=== PATIENT | female | born 1980 | race Caucasian/White ===

== ENCOUNTER 2019-04-01 09:12 | Emergency (ER) | payer MEDICAID ==
[2019-04-01 09:27] VITALS: BP 135/100
[2019-04-01] MEDS ORDERED: PENICILLIN VK 250 MG TABLET PO STA (09:33)
[2019-04-01] MEDS ORDERED: HYDROcod/ACETAM 5/325 MG TABLET PO STA (09:41)
--- NOTE | 2019-04-01 09:44 | ED Physician Documentation ---
History of Present Illness - Stated complaint Stated Complaint: DENTAL PX - Chief complaint Chief Complaint: Heent - History obtained from History obtained from: Patient - History of Present Illness Timing: How many days ago (3-4) Pain level max: 8 Pain level now: 8 - Additonal information Additional information: Left upper molar pain. Worsening for the past 3 to 4 days. Attempted to see a dentist but was told no one takes her insurance. Came here for evaluation. No fevers. Taking ibuprofen for pain Nothing makes it better or worse. 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 - Present Medications Home Medications: Ambulatory Orders Medication Instructions Recorded Confirmed Hydrocodone/Acetaminophen 1 - 2 each PO Q6H PRN #10 tablet 04/01/19 [Hydrocodon-Acetaminophen 5-325] Penicillin V Potassium 500 mg PO Q6HR #40 tablet 04/01/19 - Allergies Allergies/Adverse Reactions: Allergies Allergy/AdvReac Type Severity Reaction Status Date / Time No Known Drug Allergies Allergy Verified 04/01/19 09:27 - Social History Does the pt smoke?: No Smoking Status: Current some day smoker Substance Use and Type: Marijuana PD ED PE NORMAL - Vitals Vital signs reviewed: Yes - General General: Alert and oriented X 3, No acute distress, Well developed/nourished - HEENT HEENT: PERRL, Moist mucous membranes, Other (Tender to palpation left upper molar. No facial swelling. No gingival swelling. No drainable abscess.) - Neck Neck: Supple, no meningeal sign, Other (Normal phonation. No trismus. No Jerod's angina) - Cardiac Cardiac: RRR - Respiratory Respiratory: Clear bilaterally - Derm Derm: Warm and dry - Neuro Neuro: Alert and oriented X 3 - Psych Psych: Normal mood, Normal affect Results - Vitals Vitals: Oxygen O2 Source Room air PD MEDICAL DECISION MAKING - ED course Complexity details: considered differential, d/w patient ED course: Patient with dental caries and dental pain. Will place on antibiotics and pain medication. We will have her follow-up with her doctor for further care. She will try to get a dentist appointment as soon as possible. Patient counseled regarding signs and symptoms for which I believe and urgent re-evaluation would be necessary. Patient with good understanding of and agreement to plan and is comfortable going home at this time This document was made in part using voice recognition software. While efforts are made to proofread this document, sound alike and grammatical errors may occur. No drainable abscess Departure - Departure Disposition: 01 Home, Self Care Clinical Impression: Pain due to dental caries Condition: Good Instructions: ED Tooth Pain Follow-Up: your,dentist within the next week [Other] Prescriptions: Penicillin V Potassium 500 mg PO Q6HR #40 tablet Hydrocodone/Acetaminophen [Hydrocodon-Acetaminophen 5-325] 1 - 2 each PO Q6H PRN #10 tablet PRN Reason: pain Comments: Take all antibiotics until gone. Return if you worsen. Follow-up with your dentist for further care. Do not drink alcohol or drive while on narcotic pain medicine. Note that many narcotic pain relievers also contain tylenol/acetaminophen. Please ensure that your total dose of acetaminophen from all sources does not exceed 3 grams (3000mg) per day. You may constipated on this medication, take a stool softener such as "Colace" twice a day while you are on it. Also recommend a vlce-xxi-ijssram laxative such as senna or MiraLAX any day that you do not have a bowel movement. If you received narcotic pain medication in the emergency department, do not drive or operate machinery for the next 24 hours. Discharge Date/Time: 04/01/19 09:50
== END 2019-04-01 09:50 | disposition home or self-care (01) ==
LOC: ED 09:12
DX: K02.9 Dental caries, unspecified (principal); F17.200 Nicotine dependence, unspecified, uncomplicated; Q79.60 Ehlers-Danlos syndrome, unspecified
CPT/HCPCS: 99283; 99284; A9270

== ENCOUNTER 2020-02-14 11:48 | Emergency (ER) | payer MEDICAID ==
--- NOTE | 2020-02-14 12:18 | ED Physician Documentation ---
History of Present Illness - Stated complaint Stated Complaint: R HAND PX - Chief complaint Chief Complaint: Ext Problem - History obtained from History obtained from: Patient - History of Present Illness Timing: How many days ago (2) - Additonal information Additional information: 39-year-old female presents the emergency department with 2 days of acute nontraumatic right hand pain. 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 She reports that she has pain in the space between her second third and fourth fingers. There is mild swelling but no erythema or fevers. 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 She has not taking any pain medication. 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 She is right-hand dominant Review of Systems Constitutional: reports: Reviewed and negative Eyes: reports: Reviewed and negative Ears: reports: Reviewed and negative Nose: reports: Reviewed and negative Throat: reports: Reviewed and negative Cardiac: reports: Reviewed and negative Respiratory: reports: Reviewed and negative GI: reports: Reviewed and negative : reports: Reviewed and negative Skin: reports: Reviewed and negative Musculoskeletal: reports: Extremity pain, Joint pain. 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 - Present Medications Home Medications: Ambulatory Orders Medication Instructions Recorded Confirmed Hydrocodone/Acetaminophen [[place] 1 each PO Q6H PRN #20 tablet 01/06/20 5-325 Tablet] Naproxen 500 mg PO BID #25 tablet 01/06/20 methocarbamoL [Robaxin] 500 mg PO Q6H PRN #30 tablet 01/06/20 Ibuprofen [Motrin] 600 mg PO Q6H PRN #30 tab 02/14/20 - Allergies Allergies/Adverse Reactions: Allergies Allergy/AdvReac Type Severity Reaction Status Date / Time No Known Drug Allergies Allergy Verified 02/14/20 12:12 - Social History Does the pt smoke?: No Smoking Status: Current some day smoker Does the pt drink ETOH?: Yes Does the pt have substance abuse?: No - Immunizations Immunizations are current?: Yes - POLST Patient has POLST: No PD ED PE NORMAL - General General: Alert and oriented X 3, No acute distress, Well developed/nourished - HEENT HEENT: PERRL, EOMI - Neck Neck: Supple, no meningeal sign, No adenopathy - Cardiac Cardiac: RRR, No murmur - Abdomen Abdomen: Normal bowel sounds, Soft - Female Female : Deferred - Extremities Extremities: No deformity. No: No tenderness to palpate, Normal ROM s pain (pain between 2,3,4-5 finger with palpation. mild swelling. 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 No snuff box tenderness. normal movement against resitance though painful) Results - Vitals Vitals: Vital Signs - 24 hr 02/14/20 12:08 Temperature 37 C Heart Rate 84 Respiratory 16 Rate Blood Pressure 147/81 H O2 Saturation 100 Oxygen O2 Source Room air - Rads (name of study) right hand Radiology: Final report received (Fracture or dislocation. Mild first CMC joint osteoarthritis) PD MEDICAL DECISION MAKING - ED course Complexity details: reviewed results, re-evaluated patient, considered differential, d/w patient ED course: 89-year-old female presents to the emergency department with 2 days of right nontraumatic hand pain. 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 X- ray shows no acute fracture or dislocation. She was given 60 mg of Toradol here in the emergency department with good relief of the pain and improve movement. At this time I will recommend NSAID medication at home for analgesia and follow-up with primary care doctor. Given lack of fevers or swelling or erythema my suspicion for an infectious joint is low. She also has no signs of tenosynovitis on exam. Departure - Departure Disposition: 01 Home, Self Care Clinical Impression: Right hand pain, Nellie-Danlos disease Condition: Stable Record reviewed to determine appropriate education?: Yes Prescriptions: Ibuprofen [Motrin] 600 mg PO Q6H PRN #30 tab PRN Reason: Pain Comments: X-ray of your hand looks good. You do not have any broken bones. You are developing some arthritis at the base of your thumb. I think that the cause of your pain may be related to the Nellie-Danlos syndrome. I do recommend that you take the ibuprofen with food 2-3 times a day for the next 3 to 4 days. Schedule follow-up with your primary care doctor. Return here if you have f roger, redness increased swelling or cannot move your hand normally
[2020-02-14] MEDS: KETOROLAC 60 MG/2 ML VIAL IM STA (12:29)
--- NOTE | 2020-02-14 12:36 | XRAY Report ---
PROCEDURE: Hand 3 View RT INDICATIONS: acute non traumatic right hand pain TECHNIQUE: 3 views of the hand(s) acquired. COMPARISON: None FINDINGS: Bones: No fractures or dislocations. Mild first CMC joint osteoarthritis is seen.No suspicious bony lesions. Soft tissues: No suspicious soft tissue calcifications. IMPRESSION: No right hip fracture or dislocation. Mild first CMC joint osteoarthritis. Reviewed by: Lalo Soto MD on 02/14/2020 12:35 PM PDT Approved by: Lalo Soto MD on 02/14/2020 12:35 PM PDT Station ID: [id number]
[2020-02-14 13:30] VITALS: BP 150/65
== END 2020-02-14 13:30 | disposition home or self-care (01) ==
LOC: ED 11:48
DX: M79.641 Pain in right hand (principal); Q79.60 Ehlers-Danlos syndrome, unspecified; F17.200 Nicotine dependence, unspecified, uncomplicated
CPT/HCPCS: 96372; 99283; 99284

== ENCOUNTER 2020-07-10 08:36 | Outpatient (CLI) | payer MEDICAID ==
[2020-07-10 08:52] LABS: BASOPHILS # (AUTO) 0.1 10^3/uL (0.0-0.1); BASOPHILS % (AUTO) 0.8 %; EOSINOPHILS # (AUTO) 0.1 10^3/uL (0.0-0.7); EOSINOPHILS % (AUTO) 1.4 %; HGB - HEMOGLOBIN 14.2 g/dL (12.0-16.0); LYMPHOCYTES # (AUTO) 3.2 10^3/uL (1.5-3.5); LYMPHOCYTES % (AUTO) 34.9 %; MEAN CORPUSCULAR HEMOGLOBIN 28.4 pg (27.0-31.0); MEAN CORPUSCULAR HGB CONC 32.6 g/dL (32.0-36.0); MEAN PLATELET VOLUME 11.2 fL (7.9-10.8); MONOCYTES # (AUTO) 0.5 10^3/uL (0.0-1.0); MONOCYTES % (AUTO) 5.2 %; NEUTROPHILS # (AUTO) 5.2 10^3/uL (1.5-6.6); NEUTROPHILS % (AUTO) 57.3 %; PLT - PLATELET COUNT 228 10^3/uL (130-450); RED CELL DISTRIBUTION WIDTH 13.4 % (12.0-15.0); WHITE BLOOD COUNT 9.2 x10^3/uL (4.8-10.8)
--- NOTE | 2020-07-10 09:22 | XRAY Report ---
PROCEDURE: Ankle 3 View BILAT INDICATIONS: ANKLE PAIN,CHRONIC,LAB DRAW TECHNIQUE: 3 views of each ankle were acquired. COMPARISON: None FINDINGS: Bones: No fractures or dislocations. Ankle mortise is normally aligned. No suspicious bony lesions . Mild periarticular osteophyte formation at the bilateral tibiotalar, naviculocuneiform, and talona vicular joints. Soft tissues: No tibiotalar joint effusion. Achilles tendon appears normal. IMPRESSION: 1. Bilateral osteoarthritis. 2. No acute fracture. No osseous lesion. If symptoms and/or clinical suspicion for pathology continue , further assessment with repeat plain films, or advanced imaging (e.g., CT, MRI, or bone scan) is re commended for further assessment. Reviewed by: Mariel Sheth MD on 07/10/2020 9:21 AM PST Approved by: Mariel Sheth MD on 07/10/2020 9:21 AM PST Station ID: [id number]
[2020-07-10 09:35] LABS: ALBUMIN 3.9 g/dL (3.2-5.5); ALKALINE PHOSPHATASE 66 IU/L (42-121); ALT ALANINE AMINOTRANSFERASE 13 IU/L (10-60); AST ASPARTATE AMINOTRANSFERASE 11 IU/L (10-42); BILIRUBIN,TOTAL 0.6 mg/dL (0.2-1.0); BUN - BLOOD UREA NITROGEN 15 mg/dL (6-20); CALCIUM 8.9 mg/dL (8.5-10.3); CARBON DIOXIDE - CO2 25 mmol/L (21-32); CHLORIDE 107 mmol/L (101-111); CHOLESTEROL 171 mg/dL; CREATININE 0.5 mg/dL (0.4-1.0); GLUCOSE 103 mg/dL (70-100); HDL CHOLESTEROL 34 mg/dL; LDL CHOLESTEROL,CALCULATED 125 mg/dL; LDL/HDL RATIO 3.7 (<4.4); TOTAL PROTEIN 7.7 g/dL (6.7-8.2); VLDL CHOLESTEROL 12 mg/dL
== END 2020-07-10 08:37 | disposition home or self-care (01) ==
LOC: LAB 08:36 → DI 08:37
PROVIDERS: ATTEND Nurse Practitioner Family
DX: Z00.00 Encounter for general adult medical examination without abnormal findings (principal); M19.072 Primary osteoarthritis, left ankle and foot; M19.071 Primary osteoarthritis, right ankle and foot
CPT/HCPCS: 36415; 80050; 80061; 83721

== ENCOUNTER 2020-11-07 10:21 | Emergency (ER) | payer MEDICAID ==
[2020-11-07 10:32] VITALS: BP 144/96
--- NOTE | 2020-11-07 10:40 | ED Physician Documentation ---
PD HPI DYSPNEA - Stated complaint Stated Complaint: COUGH,SOA - Chief complaint Chief Complaint: Resp - History obtained from History obtained from: Patient - Additional information Additional information: Otherwise healthy 40-year-old woman presents with productive cough with green sputum with a days duration, mild shortness of breath, no fevers. No history of heart or lung problems although asthma runs in the family. 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 - Present Medications Home Medications: Ambulatory Orders Medication Instructions Recorded Confirmed Hydrocodone/Acetaminophen [[place] 1 each PO Q6H PRN #20 tablet 01/06/20 5-325 Tablet] Naproxen 500 mg PO BID #25 tablet 01/06/20 methocarbamoL [Robaxin] 500 mg PO Q6H PRN #30 tablet 01/06/20 Ibuprofen [Motrin] 600 mg PO Q6H PRN #30 tab 02/14/20 Albuterol Sulf [Ventolin Hfa 1 - 2 puffs INH Q4HR PRN #1 inhaler 11/07/20 Inhaler] Benzonatate [Tessalon] 200 mg PO QID PRN #12 11/07/20 - Allergies Allergies/Adverse Reactions: Allergies Allergy/AdvReac Type Severity Reaction Status Date / Time No Known Drug Allergies Allergy Verified 02/14/20 12:12 - Social History Does the pt smoke?: No Smoking Status: Current some day smoker Does the pt drink ETOH?: Yes Does the pt have substance abuse?: No - Immunizations Immunizations are current?: Yes - POLST Patient has POLST: No PD ED PE NORMAL - Vitals Vital signs reviewed: Yes - General General: Alert and oriented X 3, No acute distress - HEENT HEENT: PERRL, EOMI - Neck Neck: Supple, no meningeal sign, No bony TTP - Cardiac Cardiac: RRR, No murmur - Respiratory Respiratory: No respiratory distress, Other (Mildly diminished at the right base, otherwise no focal findings, nonlabored) - Neuro Neuro: Alert and oriented X 3, Normal speech Results - Vitals Vitals: Vital Signs - 24 hr 11/07/20 10:28 Temperature 36.5 C Heart Rate 88 Respiratory 18 Rate Blood Pressure 144/96 H O2 Saturation 98 Oxygen O2 Source Room air PD MEDICAL DECISION MAKING - ED course ED course: 40-year-old woman with URI with cough. Pulmonary exam and chest x-ray are normal. Conservative care was advised. Discussed there is no indication for antibiotics. Departure - Departure Disposition: 01 Home, Self Care Clinical Impression: Viral URI with cough, Bronchitis Condition: Good Record reviewed to determine appropriate education?: Yes Instructions: ED Upper Resp Infec No Abx Tx Prescriptions: Albuterol Sulf [Ventolin Hfa Inhaler] 1 - 2 puffs INH Q4HR PRN #1 inhaler PRN Reason: Shortness Of Air/Wheezing Benzonatate [Tessalon] 200 mg PO QID PRN #12 PRN Reason: Cough Comments: Chest x-ray is clear, no evidence of pneumonia or bronchitis. The medications I am prescribing should help with cough and breathing. Return for new or worsening symptoms. Try to avoid cigarette smoke. Follow-up with your doctor in about 5 days if not improved. Discharge Date/Time: 11/07/20 11:39
--- NOTE | 2020-11-07 10:56 | XRAY Report ---
PROCEDURE: Chest 2 View X-Ray INDICATIONS: cough TECHNIQUE: 2 view(s) of the chest. COMPARISON: X-ray chest 05/01/2016. FINDINGS: Surgical changes and devices: None. Lungs and pleura: No pleural effusions or pneumothorax. Lungs are clear. Mediastinum: Mediastinal contours are normal. Heart size is normal. Bones and chest wall: No suspicious bony abnormalities. Soft tissues appear unremarkable. IMPRESSION: No acute pulmonary process. Reviewed by: Melinda Paredes MD on 11/07/2020 10:54 AM PDT Approved by: Melinda Paredes MD on 11/07/2020 10:54 AM PDT Station ID: [id number]
--- OUTSIDE RECORDS SUMMARY | 2020-11-07 11:25 | EXTERNAL MEDICAL SUMMARY RPT | Continuity of Care Document ---
:1980 Demographics Phone Unavailable Preferred Language Unknown Marital Status Unknown Oriental Orthodox Affiliation Unknown Race Unknown Ethnic Group Unknown Author Organization [facility] Address [address] [phone] Phone Allergies Encounters Medications Problems Results
== END 2020-11-07 11:39 | disposition home or self-care (01) ==
LOC: ED 10:21
DX: J06.9 Acute upper respiratory infection, unspecified (principal); B97.89 Other viral agents as the cause of diseases classified elsewhere; J40 Bronchitis, not specified as acute or chronic; Z72.0 Tobacco use
CPT/HCPCS: 99283; 99284

== ENCOUNTER 2021-07-24 10:11 | Outpatient (CLI) | payer MEDICAID ==
[2021-07-24 11:49] LABS: BASOPHILS % (AUTO) 0.5 %; EOSINOPHILS # (AUTO) 0.1 10^3/uL (0.0-0.7); EOSINOPHILS % (AUTO) 1.2 %; HCT - HEMATOCRIT 42.3 % (37.0-47.0); HGB - HEMOGLOBIN 13.8 g/dL (12.0-16.0); LYMPHOCYTES # (AUTO) 3.3 10^3/uL (1.5-3.5); LYMPHOCYTES % (AUTO) 39.2 %; MEAN CORPUSCULAR HEMOGLOBIN 27.7 pg (27.0-31.0); MEAN CORPUSCULAR HGB CONC 32.6 g/dL (32.0-36.0); MEAN CORPUSCULAR VOLUME 84.9 fL (81.0-99.0); MEAN PLATELET VOLUME 11.3 fL (7.9-10.8); MONOCYTES # (AUTO) 0.5 10^3/uL (0.0-1.0); MONOCYTES % (AUTO) 6.3 %; NEUTROPHILS # (AUTO) 4.4 10^3/uL (1.5-6.6); NEUTROPHILS % (AUTO) 52.4 %; PLT - PLATELET COUNT 231 10^3/uL (130-450); RED BLOOD COUNT 4.98 10^6/uL (4.20-5.40); RED CELL DISTRIBUTION WIDTH 13.6 % (12.0-15.0); WHITE BLOOD COUNT 8.4 x10^3/uL (4.8-10.8)
[2021-07-24 13:01] LABS: ALBUMIN 3.8 g/dL (3.2-5.5); ALKALINE PHOSPHATASE 66 IU/L (42-121); ALT ALANINE AMINOTRANSFERASE 12 IU/L (10-60); AST ASPARTATE AMINOTRANSFERASE 11 IU/L (10-42); BILIRUBIN,TOTAL 0.6 mg/dL (0.2-1.0); BUN - BLOOD UREA NITROGEN 15 mg/dL (6-20); CALCIUM 8.7 mg/dL (8.5-10.3); CARBON DIOXIDE - CO2 26 mmol/L (21-32); CHLORIDE 102 mmol/L (101-111); CHOL/HDL RATIO 4.6 (<4.4); CHOLESTEROL 166 mg/dL; CREATININE 0.5 mg/dL (0.4-1.0); GFR - MDRD 137 (>89); GLUCOSE 100 mg/dL (70-100); HDL CHOLESTEROL 36 mg/dL; LDL CHOLESTEROL,CALCULATED 114 mg/dL; LDL/HDL RATIO 3.2 (<4.4); POTASSIUM 4.2 mmol/L (3.5-5.0); SODIUM 138 mmol/L (135-145); TOTAL PROTEIN 7.6 g/dL (6.7-8.2); TRIGLYCERIDES 81 mg/dL; VLDL CHOLESTEROL 16 mg/dL
[2021-07-24 13:08] LABS: THYROID STIMULATING HORMONE 1.29 uIU/mL (0.34-5.60)
[2021-07-24 13:10] LABS: ESTIMATED AVERAGE GLUCOSE 103 mg/dL (70-100); HEMOGLOBIN A1c% 5.2 % (4.27-6.07)
== END 2021-07-24 10:12 | disposition home or self-care (01) ==
LOC: LAB.N 10:11
PROVIDERS: ATTEND Physician Assistant
DX: Z13.1 Encounter for screening for diabetes mellitus (principal); Z13.9 Encounter for screening, unspecified; Z13.220 Encounter for screening for lipoid disorders; Z13.29 Encounter for screening for other suspected endocrine disorder
CPT/HCPCS: 36415; 80050; 80061; 83036; 83721

== ENCOUNTER 2022-08-09 13:58 | Emergency (ER) | payer OTHER, MEDICAID ==
[2022-08-09 14:08] VITALS: BP 150/89
--- NOTE | 2022-08-09 14:13 | ED Physician Documentation ---
PD HPI HEAD INJURY - Stated complaint Stated Complaint: FACE INJ - Chief complaint Chief Complaint: Trauma Hd/Nk - History obtained from History obtained from: Patient - History of Present Illness Mechanism of head injury: Blow (she and coworkers were maneuvering a large elongated box weighing about 100 lbs and it tipped/fell, striking her on face as it tipped and fell. Patient struck on face, had glasses pushed down forcefully and struck lip, broke a tooth. Not struck on torso nor legs as she hopped backward as it fell.) Where head injury occurred: Work Timing - onset: Today Location of injury: Front (struck on face at nose/mouth/chin area.) Associated symptoms: AMS (she said dazed for several minutes, with blurred vision and some nausea. no LOC. no vomiting. Frontal but no general headache.). No: LOC Symptoms improve with: Ice Symptoms worsen with: Palpation Contributing factors: No: Anticoagulated Similar symptoms before: Has not had sx before Review of Systems Eyes: denies: Loss of vision, Decreased vision, Irritation Throat: reports: Dental pain / toothache (front upper left tooth with small chip avulsion and is hurting. gums hurting too. Lip lower with small laceration and swelling. 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 - Present Medications Home Medications: Ambulatory Orders Medication Instructions Recorded Confirmed Hydrocodone/Acetaminophen [[place] 1 each PO Q6H PRN #20 tablet 01/06/20 5-325 Tablet] Naproxen 500 mg PO BID #25 tablet 01/06/20 methocarbamoL [Robaxin] 500 mg PO Q6H PRN #30 tablet 01/06/20 Ibuprofen [Motrin] 600 mg PO Q6H PRN #30 tab 02/14/20 Albuterol Sulf [Ventolin Hfa 1 - 2 puffs INH Q4HR PRN #1 inhaler 11/07/20 Inhaler] Benzonatate [Tessalon] 200 mg PO QID PRN #12 11/07/20 Oxycodone HCl/Acetaminophen 1 each PO Q6H PRN #12 tablet 08/09/22 [Percocet 5-325 mg Tablet] - Allergies Allergies/Adverse Reactions: Allergies Allergy/AdvReac Type Severity Reaction Status Date / Time No Known Drug Allergies Allergy Verified 08/09/22 14:08 - Social History Does the pt smoke?: No Smoking Status: Current some day smoker Does the pt drink ETOH?: Yes Does the pt have substance abuse?: No - Immunizations Immunizations are current?: Yes - POLST Patient has POLST: No PD ED PE NORMAL - Vitals Vital signs reviewed: Yes - General General: Alert and oriented X 3, No acute distress, Well developed/nourished - HEENT HEENT: PERRL, EOMI, Dentition benign (small chip left upper frontal tooth. not loose. Nares without septal hematoma. Small lac lower lip not across maxx border. ), Other (front upper left tooth with small chip avulsion and is hurting. gums hurting too. Lip lower with small laceration and swelling. Chin with abrasion and tender. bridge of nose tender and swollen, with abrasions linearly down face on nose, mid lip, and chin, about 3 cm wide. no nsal deviation. ) - Neck Neck: Supple, no meningeal sign, No bony TTP, No adenopathy Results - Vitals Vitals: Vital Signs - 24 hr 08/09/22 14:05 Temperature 36.6 C Heart Rate 76 Respiratory 16 Rate Blood Pressure 150/89 H O2 Saturation 100 Oxygen O2 Source Room air - Rads (name of study) facial CT Relevant Findings:: Prelim report reviewed (no fractures per report. ), EMP independent interpretation of test, See rad report PD Medical Decision Making - ED course Complexity details: reviewed results (no fractures per radiology report. ), considered differential (struck in face by heavy object at work. tender at nose and midface. Can get imaging to ensure no fractures. Symptoms suggest mild concussive symptoms but is doing okay now. ), d/w patient Departure - Departure Disposition: 01 Home, Self Care Clinical Impression: Facial contusion, Tooth fracture, Mild concussion Condition: Stable Record reviewed to determine appropriate education?: Yes Prescriptions: Oxycodone HCl/Acetaminophen [Percocet 5-325 mg Tablet] 1 each PO Q6H PRN #12 tablet PRN Reason: pain Comments: Your CT scan did not show any signs of fractures. You will still be sore in the face obviously. Clean the wounds with soap and water twice daily and apply ointment to them to help them heal without being hard and dry. Tylenol or ibuprofen or both if needed for pains. Add stronger pain medicine if needed in the short-term. Your symptoms suggest a very mild concussive type syndrome. Patient avoid any strenuous activity or coordinated activities for today and tomorrow. Resume normal activity after that if feeling okay. I sent your prescription to [facility]. I am prescribing a short course of narcotic pain medication for you. These are potentially dangerous and addictive medications that should be used carefully. These medications may constipate you. Take an cjre-sks-ubeimla stool softener such as docusate twice daily with plenty of water while taking these medications. If you go 24 hours without a bowel movement, take [id number] MiraLAX, per package instructions. Do not drink or drive while taking these medications. If you received narcotic or sedating medications while in the emergency department do not drive for 24 hours. Store this medication in a safe, secure place and out of reach of children. It is a violation of federal law to give or sell this medication to another person or to use in a manner other than prescribed. The ED will not refill narcotic prescriptions, including prescriptions lost or stolen. You can dispose of unwanted medications at the [facility]'s office or at several pharmacies such as [facility]. Forms: Activity restrictions Discharge Date/Time: 08/09/22 15:46
[2022-08-09] MEDS ORDERED: ACETAMINOPHEN 325 MG TABLET PO STA (14:30)
[2022-08-09] MEDS ORDERED: oxyCODONE 5 MG TABLET PO STA (14:30)
[2022-08-09] MEDS ORDERED: IBUPROFEN 800 MG TABLET PO STA (14:30)
--- NOTE | 2022-08-09 14:57 | CT Report ---
PROCEDURE: MAXILLOFACIAL WO INDICATIONS: struck in face heavy box TECHNIQUE: Noncontrast 1.5 mm thick axial images acquired from the mandible through the frontal sinuses, with co anjelica and sagittal reformatting. For radiation dose reduction, the following was used: automated ex posure control, adjustment of mA and/or kV according to patient size. COMPARISON: None. FINDINGS: Image quality: Excellent. Bones and teeth: Orbital smith are intact. Sinus smith show no fracture or deformity. Nasal bones and septum are intact. Visualized portions of the mandible demonstrate no fractures or subluxation. Zygomatic arches are intact. Pterygoid plates are intact. Visualized portions of the skull base an d auditory canals are intact. Sinuses: Paranasal sinuses are aerated, without fluid levels, mucosal thickening, or mucoceles. Mas toid air cells are aerated. There is rightward curvature of the nasal septum. Soft tissues: Punctate focus of air in the soft tissues anterior to the nose consistent with superfic ial trauma. No displaced nasal fracture.. No enlarged lymph nodes. No soft tissue lacerations or de bris. Vascular: Visualized vascular structures appear normal in the absence of contrast. Bony vascular fo ramina and canals are intact. IMPRESSION: 1. No acute facial bone fracture. 2. No displaced nasal bone fracture. Reviewed by: Terry Shelton on 08/09/2022 1:56 PM [facility] Approved by: Terry Shelton on 08/09/2022 1:56 PM [facility] Station ID: [id number]
== END 2022-08-09 15:46 | disposition home or self-care (01) ==
LOC: ED 13:58
DX: S02.5XXA Fracture of tooth (traumatic), initial encounter for closed fracture (principal); S06.0X0A Concussion without loss of consciousness, initial encounter; S00.83XA Contusion of other part of head, initial encounter; W01.198A Fall on same level from slipping, tripping and stumbling with subsequent striking against other object, initial encounter; Y92.9 Unspecified place or not applicable; Y99.0 Civilian activity done for income or pay; F17.210 Nicotine dependence, cigarettes, uncomplicated
CPT/HCPCS: 1040M; 70486; 99283; 99284; A9270